=== PATIENT | male | born 1935 | race Caucasian/White ===

== ENCOUNTER 2017-11-17 13:42 | Emergency (ER) | payer OTHER ==
[~2017-11-17] VITALS: Ht 177.8 cm; Wt 77.1 kg
== END 2017-11-17 16:25 | disposition home or self-care (01) ==
LOC: ED 13:42
DX: S63.286A Dislocation of proximal interphalangeal joint of right little finger, initial encounter (principal); I10 Essential (primary) hypertension; E78.00 Pure hypercholesterolemia, unspecified; Z95.5 Presence of coronary angioplasty implant and graft; W01.0XXA Fall on same level from slipping, tripping and stumbling without subsequent striking against object, initial encounter; Y93.89 Activity, other specified; Y92.89 Other specified places as the place of occurrence of the external cause; Y99.8 Other external cause status
CPT/HCPCS: 90715; J3490

== ENCOUNTER 2018-03-11 21:25 | Observation (INO) | payer OTHER ==
[~2018-03-11] VITALS: Ht 177.8 cm; Wt 75.5 kg
[2018-03-11 21:39] VITALS: Ht 177.8 cm; Wt 75.5 kg
[2018-03-11 22:33] LABS: BASOPHIL % 0.4 % (0-2); PLATELET COUNT 136 x10^3mcL (130-400); RED CELL DISTRIBUTION WIDTH 13.1 % (11.5-14.5)
[2018-03-11 22:49] LABS: CALCIUM 8.4 mg/dL (8.5-10.1); CARBON DIOXIDE 23.8 mmol/L (21-32); CHLORIDE SERUM 107 mmol/L (98-107); CREATININE SERUM 1.3 mg/dL (0.7-1.3); GLUCOSE SERUM 97 mg/dL (74-106); POTASSIUM SERUM 4.6 mmol/L (3.5-5.1); SODIUM SERUM 140 mmol/L (136-145)
[2018-03-11 22:53] LABS: ALBUMIN 3.7 g/dL (3.4-5.0); ALKALINE PHOSPHATASE 66 U/L (46-116); ALT/SGPT 33 U/L (16-63); AST/SGOT 27 U/L (15-37); BILIRUBIN TOTAL 0.32 mg/dL (0.20-1.00); TOTAL PROTEIN, SERUM 6.6 g/dL (6.4-8.2)
[2018-03-11 23:51] LABS: microscopic required? NO
[2018-03-11 23:58] LABS: urine erythrocyte NEGATIVE (NEGATIVE)
[2018-03-12] MEDS ORDERED: PLA75 (00:34)
[2018-03-12] MEDS ORDERED: NATURE'S BLEND F1 MG (00:35)
[2018-03-12] MEDS ORDERED: METOPROLOL SUCC25 M2 (00:35)
[2018-03-12] MEDS ORDERED: MELOXICAM7.5 M1 (00:35)
[2018-03-12] MEDS ORDERED: GOOD SENSE OMEP20 MG PO (00:36)
[2018-03-12] MEDS ORDERED: BENAZEPRIL HYDR20 M1 PO (00:36)
[2018-03-12] MEDS ORDERED: SIMVASTATIN40 M1 PO (00:36)
[2018-03-12] MEDS ORDERED: LISINOPRIL2.5 MG (00:37)
[2018-03-12] MEDS ORDERED: GOOD SENSE ASPI81 M3 (00:37)
[2018-03-12] MEDS ORDERED: NITROGLYCERIN0.4 MG (00:38)
[2018-03-12] MEDS ORDERED: COQ-1030 MG (00:38)
[2018-03-12] MEDS ORDERED: MULTI-VITAMINS1 TAB (00:38)
[2018-03-12 01:11] VITALS: BP 175/65
[2018-03-12 01:51] LABS: FREE T4 0.86 ng/dL (0.76-1.46); FREE THYROXINE INDEX 1.9 ug/dL (1.4-4.5); T4(THYROXINE) 5.2 ug/dL (4.7-13.3)
[2018-03-12 01:59] LABS: AMPHETAMINE QUAL UR NONE DETECTED (NEG <=1000)
[2018-03-12 02:00] LABS: MAGNESIUM 2.2 mg/dL (1.8-2.4); PHOSPHOROUS 3.7 mg/dL (2.5-4.9)
[2018-03-12 02:18] LABS: T3 TOTAL 0.84 ng/mL
[2018-03-12 05:43] VITALS: BP 108/57
[2018-03-12 07:19] LABS: CHOLESTEROL/HDL RATIO 2.3
[2018-03-12 09:14] VITALS: BP 129/79
[2018-03-12 13:05] VITALS: BP 135/59
[2018-03-12 17:05] VITALS: BP 132/59
[2018-03-12 21:03] VITALS: BP 124/54
[2018-03-13 05:11] VITALS: BP 122/41
[2018-03-13 06:42] LABS: BASOPHIL % 0.4 % (0-2); RED CELL DISTRIBUTION WIDTH 13.3 % (11.5-14.5)
[2018-03-13 06:43] LABS: PLATELET COUNT 116 x10^3mcL (130-400)
[2018-03-13 06:56] LABS: CALCIUM 8.8 mg/dL (8.5-10.1); CARBON DIOXIDE 25.3 mmol/L (21-32); CHLORIDE SERUM 112 mmol/L (98-107); CREATININE SERUM 1.1 mg/dL (0.7-1.3); GLUCOSE SERUM 96 mg/dL (74-106); PHOSPHOROUS 3.3 mg/dL (2.5-4.9); POTASSIUM SERUM 4.8 mmol/L (3.5-5.1); SODIUM SERUM 144 mmol/L (136-145)
[2018-03-13 09:15] VITALS: BP 129/52
[2018-03-13 10:27] VITALS: BP 129/52
== END 2018-03-13 11:22 | disposition home or self-care (01) | DRG 551 ==
LOC: ED 21:25 → DU 03-12 00:19
PROVIDERS: Emergency Medicine; Student in an Organized Health Care Education/Training Program
DX: M51.36 Other intervertebral disc degeneration, lumbar region (principal); N17.0 Acute kidney failure with tubular necrosis; I10 Essential (primary) hypertension; I25.10 Atherosclerotic heart disease of native coronary artery without angina pectoris; E83.51 Hypocalcemia; D69.6 Thrombocytopenia, unspecified; E87.8 Other disorders of electrolyte and fluid balance, not elsewhere classified; D64.9 Anemia, unspecified; G47.33 Obstructive sleep apnea (adult) (pediatric); I70.0 Atherosclerosis of aorta; G31.9 Degenerative disease of nervous system, unspecified; E78.5 Hyperlipidemia, unspecified; Z79.82 Long term (current) use of aspirin; Z68.22 Body mass index [BMI] 22.0-22.9, adult; Z95.5 Presence of coronary angioplasty implant and graft
CPT/HCPCS: 83880; 84439; G0378; J7030; Q0092